=== PATIENT | male | born 2000 | race Caucasian/White ===

== ENCOUNTER 2025-04-06 18:23 | Emergency (ER) | payer OTHER ==
[~2025-04-06] VITALS: Ht 175.3 cm; Wt 70.7 kg
[2025-04-06] MEDS: NS (Normal Saline) 0.9% 1,000 ML IV ONE (19:40)
[2025-04-06] MEDS: KETOROLAC 30 MG/ML 1 ML VIAL IV ONE (19:40)
[2025-04-06 20:20] VITALS: BP 104/56; TEMP 97; O2SAT 98
== END 2025-04-06 20:30 | disposition home or self-care (01) ==
LOC: M ED 18:23
DX: G43.909 Migraine, unspecified, not intractable, without status migrainosus (principal); J01.91 Acute recurrent sinusitis, unspecified; F17.210 Nicotine dependence, cigarettes, uncomplicated
CPT/HCPCS: 70450; 96361; 96374; 99284; J1885; J2765